=== PATIENT | male | born 1985 | race Caucasian/White ===

== ENCOUNTER 2019-08-06 05:39 | Emergency (ER) | payer MEDICAID ==
[~2019-08-06] VITALS: Ht 182.9 cm; Wt 110.0 kg
--- NOTE | 2019-08-06 05:53 | NUR ---
BIBA FOR RIGHT UPPER ABD PAIN. 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 PT REPORTS HX OF GERD, MS, ANX/DEP.
[2019-08-06] MEDS ORDERED: ONDANSETRON 2MG/ML, 2ML IVPush ONE (06:00)
[2019-08-06] MEDS ORDERED: SODIUM CHLORIDE FLUSH 10ML SYR IVF ONE (06:00)
[2019-08-06] MEDS ORDERED: ONDANSETRON 2MG/ML, 2ML ONE (06:13)
[2019-08-06] MEDS ORDERED: MORPHINE SULFATE 4 MG/ML, 1ML ONE ×2 (06:13→06:41)
[2019-08-06] MEDS: MORPHINE SULFATE 4 MG/ML, 1ML IVPush PRN ×2 (06:18→06:43)
--- NOTE | 2019-08-06 06:21 | NUR ---
FREIGHT ENGINEER AT BEDSIDE.
[2019-08-06 06:26] LABS: MEAN CORPUSCULAR HGB CONC 33.4 g/dL (33.2-36.2); MEAN CORPUSCULAR VOLUME 86.7 fL (81-97); MEAN PLATELET VOLUME 8.9 fL (7.4-10.4); PLATELET COUNT 282 x10^3/uL (130-400); RED BLOOD COUNT 5.48 x10^6/uL (4.38-5.82); RED CELL DISTRIBUTION WIDTH 13.6 % (9.4-14.8)
[2019-08-06 06:32] LABS: ALANINE AMINOTRANSFERASE 37 U/L (12-78); ALBUMIN 4.2 g/dL (3.4-5.0); ANION GAP 8 mmol/L (5-15); CALCIUM 9.4 mg/dL (8.5-10.1); CHLORIDE 107 mmol/L (98-107); CREATININE 1.12 mg/dL (0.7-1.3)
[2019-08-06 06:35] LABS: ALKALINE PHOSPHATASE 76 U/L (45-117); BILIRUBIN,TOTAL 0.9 mg/dL (0.2-1.0)
[2019-08-06 06:42] LABS: MD YES
[2019-08-06 06:43] LABS: <PLATELET ESTIMATE> ADEQUATE; <PLT MORPHOLOGY> NORMAL PLT MORPH; EOS#(MANUAL) 0.16 x10^3/uL (0.0-0.4); EOS% (MANUAL) 1 % (1-7); LYMPH#(MANUAL) 2.33 x10^3/uL (1-3.4); LYMPHS% (MANUAL) 15 % (22-44); MONOS#(MANUAL) 0.62 x10^3/uL (0.3-2.7); MONOS% (MANUAL) 4 % (2-9); SEGS% (MANUAL) 80 % (42-75)
[2019-08-06 06:45] LABS: <RBC MORPHOLOGY> NORMAL
--- NOTE | 2019-08-06 06:53 | NUR ---
REPORT GIVEN TO KAMALJIT MORSE.
[2019-08-06 07:03] VITALS: BP 121/64
--- NOTE | 2019-08-06 07:04 | NUR ---
PT RESTING ON GURNEY AT THIS TIME, STATES PAIN RELIEF FROM PRN DOPSTER PER NOC RN. VSS, EDUCATED ON NEED FOR UA, PT HAD GONE RECENTLY AND FORGOT TO PROVIDE SAMPLE. NO OTHER NEEDS AT THIS TIME
[2019-08-06 07:17] LABS: MICROSCOPIC INDICATED
[2019-08-06 07:26] LABS: CULTURE INDICATED? NO
== END 2019-08-06 07:50 | disposition home or self-care (01) ==
LOC: ED 07:44
DX: R11.2 Nausea with vomiting, unspecified (principal); R10.11 Right upper quadrant pain; F41.9 Anxiety disorder, unspecified; R94.31 Abnormal electrocardiogram [ECG] [EKG]
CPT/HCPCS: 36415; 76700; 80053; 81001; 83690; 85025; 93005; 96374; 96375; 99285; J2270; J2405

== ENCOUNTER 2019-08-23 02:32 | Emergency (ER) | payer MEDICAID ==
[~2019-08-23] VITALS: Ht 182.9 cm; Wt 109.0 kg
--- NOTE | 2019-08-23 02:50 | NUR ---
pt here for abd cramping with nausea for several hours. Vss. urine sent to lab. at bedside
[2019-08-23] MEDS ORDERED: PROMETHAZINE 25 MG/ML, 1ML ONE (02:56)
[2019-08-23] MEDS ORDERED: ONDANSETRON ODT 8 MG ONE (02:57)
[2019-08-23] MEDS ORDERED: ONDANSETRON ODT 4 MG PO ONE (03:00)
[2019-08-23] MEDS ORDERED: PROMETHAZINE 25 MG/ML, 1ML IM ONE (03:00)
[2019-08-23 03:17] LABS: MICROSCOPIC NOT IND
[2019-08-23 03:43] LABS: ALBUMIN 3.8 g/dL (3.4-5.0); ANION GAP 6 mmol/L (5-15); CHLORIDE 108 mmol/L (98-107)
[2019-08-23 03:46] LABS: ALANINE AMINOTRANSFERASE 40 U/L (12-78); ALKALINE PHOSPHATASE 69 U/L (45-117); BILIRUBIN,TOTAL 0.5 mg/dL (0.2-1.0); CREATININE 1.11 mg/dL (0.7-1.3); TOTAL PROTEIN 7.2 g/dL (6.4-8.2)
[2019-08-23 03:47] LABS: BASOPHILS # (AUTO) 0.21 x10^3/uL (0-0.1); BASOPHILS % (AUTO) 1 % (0-1); EOSINOPHILS # (AUTO) 0.55 x10^3/uL (0-0.4); EOSINOPHILS % (AUTO) 3 % (1-7); LYMPHOCYTES # (AUTO) 1.93 x10^3/uL (1-3.4); LYMPHOCYTES % (AUTO) 12 % (22-44); MD NO; MEAN CORPUSCULAR HEMOGLOBIN 28.9 pg (27.5-34.5); MEAN CORPUSCULAR HGB CONC 33.4 g/dL (33.2-36.2); MEAN PLATELET VOLUME 9.7 fL (7.4-10.4); MONOCYTES # (AUTO) 0.46 x10^3/uL (0.2-0.8); MONOCYTES % (AUTO) 3 % (2-9); NEUTROPHILS # (AUTO) 13.09 x10^3/uL (1.8-6.8); NEUTROPHILS % (AUTO) 81 % (42-75); PLATELET COUNT 238 x10^3/uL (130-400); RED BLOOD COUNT 5.33 x10^6/uL (4.38-5.82); RED CELL DISTRIBUTION WIDTH 13.5 % (9.4-14.8)
[2019-08-23 04:20] VITALS: BP 118/75
== END 2019-08-23 04:53 | disposition home or self-care (01) ==
LOC: ED 02:59
DX: K76.0 Fatty (change of) liver, not elsewhere classified (principal); R11.2 Nausea with vomiting, unspecified; R10.10 Upper abdominal pain, unspecified
CPT/HCPCS: 36415; 76700; 80053; 81003; 83690; 85025; 96372; 99284; J2550; Q0162

== ENCOUNTER 2019-10-08 22:02 | Emergency (ER) | payer MEDICAID ==
[~2019-10-08] VITALS: Ht 182.9 cm; Wt 110.4 kg
[2019-10-08] MEDS ORDERED: MAALOX/HYOSCYAMINE/LIDOCAINE 45 ML BTL ONE (22:27)
[2019-10-08] MEDS ORDERED: ONDANSETRON ODT 4 MG ONE (22:27)
[2019-10-08] MEDS ORDERED: MAALOX/HYOSCYAMINE/LIDOCAINE 45 ML BTL PO ONE (22:30)
[2019-10-08] MEDS ORDERED: ONDANSETRON ODT 4 MG PO ONE (22:30)
--- NOTE | 2019-10-08 22:30 | NUR ---
Patient presents to ER c/o upper quad abd cramping x2 hours with N/V. Denies diarrhea or urinary symptoms. Patient states he was seen here less than a month ago for the same and did not have a dx. He was referred to a medical illustrator but has not followed up; these symptoms feel the same as before. Patient is in NAD. Respirations even and unlabored.
[2019-10-08 22:55] LABS: BASOPHILS # (AUTO) 0.09 x10^3/uL (0-0.1); BASOPHILS % (AUTO) 1 % (0-1); EOSINOPHILS # (AUTO) 0.64 x10^3/uL (0-0.4); EOSINOPHILS % (AUTO) 5 % (1-7); LYMPHOCYTES # (AUTO) 3.64 x10^3/uL (1-3.4); LYMPHOCYTES % (AUTO) 29 % (22-44); MD NO; MEAN CORPUSCULAR HEMOGLOBIN 28.1 pg (27.5-34.5); MEAN CORPUSCULAR HGB CONC 32.4 g/dL (33.2-36.2); MEAN CORPUSCULAR VOLUME 86.6 fL (81-97); MEAN PLATELET VOLUME 8.4 fL (7.4-10.4); MONOCYTES # (AUTO) 0.78 x10^3/uL (0.2-0.8); MONOCYTES % (AUTO) 6 % (2-9); NEUTROPHILS # (AUTO) 7.46 x10^3/uL (1.8-6.8); NEUTROPHILS % (AUTO) 59 % (42-75); PLATELET COUNT 297 x10^3/uL (130-400); RED BLOOD COUNT 5.46 x10^6/uL (4.38-5.82); RED CELL DISTRIBUTION WIDTH 12.9 % (9.4-14.8)
[2019-10-08] MEDS ORDERED: SODIUM CHLORIDE 0.9% 1,000ML IVBOLUS ONE (23:00)
[2019-10-08 23:05] LABS: ALANINE AMINOTRANSFERASE 33 U/L (12-78); ALBUMIN 3.9 g/dL (3.4-5.0); ANION GAP 6 mmol/L (5-15); CALCIUM 9.8 mg/dL (8.5-10.1); CHLORIDE 109 mmol/L (98-107); CREATININE 1.09 mg/dL (0.7-1.3)
[2019-10-08 23:07] LABS: ALKALINE PHOSPHATASE 71 U/L (45-117); BILIRUBIN,TOTAL 0.7 mg/dL (0.2-1.0); TOTAL PROTEIN 7.7 g/dL (6.4-8.2)
[2019-10-09 00:03] VITALS: BP 120/77
== END 2019-10-09 00:07 | disposition home or self-care (01) ==
LOC: ED 22:32
DX: R11.2 Nausea with vomiting, unspecified (principal); R10.13 Epigastric pain; R10.10 Upper abdominal pain, unspecified
CPT/HCPCS: 36415; 80053; 83690; 85025; 99283; Q0162

== ENCOUNTER 2019-11-29 12:05 | Emergency (ER) | payer MEDICAID ==
[~2019-11-29] VITALS: Ht 182.9 cm; Wt 112.6 kg
--- NOTE | 2019-11-29 12:16 | NUR ---
PATIENT COMES IN WITH CHIEF C/O ABD CRAMPING AND PAIN. CRAMPING AND PAIN STARTED THIS MORNING AFTER PATIENT WOKE UP AROUND 0930. PATIENT REPORTS 1 EPISODE OF EMESIS PRIOR TO ARRIVAL AT HOSPITAL. PATIENT'S REPORTS HIS PAIN LEVEL IS 9/10. PATIENT ACTIVELY VOMITING DURING ASSESSMENT.
[2019-11-29] MEDS ORDERED: LORazepam 2 MG/ML, 1ML IVPush ONE (12:30)
[2019-11-29] MEDS ORDERED: ONDANSETRON 2MG/ML, 2ML IVPush ONE (12:30)
[2019-11-29] MEDS ORDERED: SODIUM CHLORIDE 0.9% 1,000ML IVBOLUS ONE (12:30)
[2019-11-29] MEDS ORDERED: MAALOX/HYOSCYAMINE/LIDOCAINE 45 ML BTL PO ONE (12:30)
[2019-11-29] MEDS ORDERED: FAMOTIDINE 20 MG/2 ML IV ONE (12:30)
[2019-11-29] MEDS ORDERED: ONDANSETRON 2MG/ML, 2ML ONE (12:44)
[2019-11-29] MEDS ORDERED: MAALOX/HYOSCYAMINE/LIDOCAINE 45 ML BTL ONE (12:44)
[2019-11-29] MEDS ORDERED: LORazepam 2 MG/ML, 1ML ONE (12:44)
[2019-11-29] MEDS ORDERED: FAMOTIDINE 20 MG/2 ML ONE (12:45)
[2019-11-29 12:58] VITALS: BP 115/87
[2019-11-29 13:00] LABS: BASOPHILS # (AUTO) 0.06 x10^3/uL (0-0.1); BASOPHILS % (AUTO) 0 % (0-1); EOSINOPHILS # (AUTO) 0.78 x10^3/uL (0-0.4); EOSINOPHILS % (AUTO) 6 % (1-7); LYMPHOCYTES # (AUTO) 2.79 x10^3/uL (1-3.4); LYMPHOCYTES % (AUTO) 20 % (22-44); MD NO; MEAN CORPUSCULAR HEMOGLOBIN 28.4 pg (27.5-34.5); MEAN CORPUSCULAR VOLUME 86.1 fL (81-97); MEAN PLATELET VOLUME 8.5 fL (7.4-10.4); MONOCYTES % (AUTO) 6 % (2-9); NEUTROPHILS # (AUTO) 9.71 x10^3/uL (1.8-6.8); NEUTROPHILS % (AUTO) 68 % (42-75); PLATELET COUNT 302 x10^3/uL (130-400); RED CELL DISTRIBUTION WIDTH 13.4 % (9.4-14.8)
--- NOTE | 2019-11-29 13:06 | NUR ---
X-RAY, US DELAY
[2019-11-29 13:09] LABS: ALANINE AMINOTRANSFERASE 32 U/L (12-78); ALBUMIN 3.9 g/dL (3.4-5.0); ANION GAP 4 mmol/L (5-15); CALCIUM 9.4 mg/dL (8.5-10.1); CHLORIDE 109 mmol/L (98-107); CREATININE 1.08 mg/dL (0.7-1.3)
[2019-11-29 13:12] LABS: ALKALINE PHOSPHATASE 84 U/L (45-117); BILIRUBIN,TOTAL 0.4 mg/dL (0.2-1.0); TOTAL PROTEIN 7.6 g/dL (6.4-8.2)
--- NOTE | 2019-11-29 14:02 | NUR ---
PATIENT BACK FROM US, CALL LIGHT WITHIN REACH, NO FURTHER NEEDS AT THIS TIME.
== END 2019-11-29 14:21 | disposition home or self-care (01) ==
LOC: ED 14:15
DX: K85.90 Acute pancreatitis without necrosis or infection, unspecified (principal); R10.13 Epigastric pain; R94.31 Abnormal electrocardiogram [ECG] [EKG]; R11.2 Nausea with vomiting, unspecified; G35 Multiple sclerosis
CPT/HCPCS: 36415; 74018; 76700; 80053; 83690; 85025; 93005; 96361; 96374; 96375; 99285; J2060; J2405; J3490; J7030

== ENCOUNTER 2020-01-12 06:18 | Emergency (ER) | payer MEDICAID ==
[~2020-01-12] VITALS: Ht 182.9 cm; Wt 113.4 kg
--- NOTE | 2020-01-12 06:29 | NUR ---
THIS IS A 34Y M BIB EMS FROM HOME FOR N/V X1.5HRS PT HAS BEEN SEEN FOR THIS PRIOR AND FOLLOWED UP WITH GI STILL AWAITING DX FOR THIS. PT WAS GIVEN 25O NS, 4ZOFRAN FORENSIC CHEMIST. PT HAS DX OF ANXIETY AND MS. PT CONNECTED TO MONITORING VSS, PT EDUCATED TO SLOW BREATHING. PT STS HE CANNOT TOLERATE THIS ANYMORE HE CAN'T CHANGE INTO GOWN. PT STS HE THREW UP HIS ANXIETY MEDICATION A LITTLE WHILE AGO.
[2020-01-12] MEDS ORDERED: HYDROmorphone 1 MG/ML, 1ML INJ ONE (06:49)
[2020-01-12] MEDS ORDERED: ONDANSETRON 2MG/ML, 2ML ONE (06:50)
[2020-01-12] MEDS ORDERED: LORazepam 2 MG/ML, 1ML ONE (06:50)
[2020-01-12 06:56] LABS: BASOPHILS % (AUTO) 1 % (0-1); EOSINOPHILS % (AUTO) 4 % (1-7); LYMPHOCYTES % (AUTO) 21 % (22-44); MEAN CORPUSCULAR HEMOGLOBIN 28.8 pg (27.5-34.5); MEAN CORPUSCULAR HGB CONC 33.5 g/dL (33.2-36.2); MEAN PLATELET VOLUME 8.5 fL (7.4-10.4); MONOCYTES % (AUTO) 8 % (2-9); NEUTROPHILS % (AUTO) 67 % (42-75); PLATELET COUNT 297 x10^3/uL (130-400); RED BLOOD COUNT 5.42 x10^6/uL (4.38-5.82); RED CELL DISTRIBUTION WIDTH 13.5 % (9.4-14.8)
[2020-01-12] MEDS ORDERED: SODIUM CHLORIDE FLUSH 10ML SYR IVF ONE (07:00)
[2020-01-12] MEDS ORDERED: SODIUM CHLORIDE 0.9% 1,000 ML IV ONE (07:00)
[2020-01-12] MEDS ORDERED: ONDANSETRON 2MG/ML, 2ML IVPush ONE (07:00)
[2020-01-12] MEDS ORDERED: LORazepam 2 MG/ML, 1ML IVPush ONE (07:00)
[2020-01-12] MEDS ORDERED: SODIUM CHLORIDE 0.9% 1,000ML IVBOLUS ONE (07:00)
[2020-01-12] MEDS ORDERED: HYDROmorphone 2 MG/ML, 1ML IVPush PRN (07:00)
--- NOTE | 2020-01-12 07:01 | NUR ---
REC BS REPORT PT APPEARS TO BE IN DISCOMFORT PT IS TALKING IN FULL SENTENCES NO DISCOMFORT NOTED
[2020-01-12 07:07] LABS: ALANINE AMINOTRANSFERASE 32 U/L (12-78); ANION GAP 7 mmol/L (5-15); CALCIUM 9.2 mg/dL (8.5-10.1); CHLORIDE 110 mmol/L (98-107); CREATININE 1.16 mg/dL (0.7-1.3)
[2020-01-12 07:09] VITALS: BP 121/81
[2020-01-12 07:10] LABS: ALKALINE PHOSPHATASE 81 U/L (45-117); BILIRUBIN,TOTAL 0.6 mg/dL (0.2-1.0); TOTAL PROTEIN 7.6 g/dL (6.4-8.2)
[2020-01-12 07:33] LABS: MD SCAN
[2020-01-12] MEDS ORDERED: OMNIPAQUE 350 MG/ML, 100ML BOTTLE ONE (07:58)
[2020-01-12 08:16] LABS: MICROSCOPIC INDICATED
== END 2020-01-12 09:47 | disposition home or self-care (01) ==
LOC: ED 08:54
DX: R10.84 Generalized abdominal pain (principal); R11.2 Nausea with vomiting, unspecified; R05 Cough
CPT/HCPCS: 36415; 74022; 74177; 80053; 81001; 83690; 85025; 93005; 96361; 96374; 96375; 99285; J1170; J2060; J2405; J7030; Q9967

== ENCOUNTER 2020-06-04 13:23 | Emergency (ER) | payer MEDICAID ==
[~2020-06-04] VITALS: Ht 177.8 cm; Wt 102.3 kg
--- NOTE | 2020-06-04 13:30 | NUR ---
BIB EMS FOR C/O NAUSEA AND DIAPHORETIC W/ BOUTS OF EMESIS. STARTED TODAY AT 1000. PT C/O ESOPHAGEAL PAIN. GIVEN 4 MG ZOFRAN, 100 MCG FENTANYL, 250 ML NS. HX MS PER PT "MAKES EVERYTHING SO MUCH WORSE AND PAINFUL". MONITORS APPLIED. EKG COMPLETED. WARM BLANKET PROVIDED. JOSE.
--- NOTE | 2020-06-04 13:51 | NUR ---
JOCY SMITH AT BEDSIDE FOR EVAL.
[2020-06-04 14:12] LABS: MICROSCOPIC NOT IND
[2020-06-04 14:12] LABS: BASOPHILS % (AUTO) 0 % (0-1); EOSINOPHILS % (AUTO) 2 % (1-7); LYMPHOCYTES % (AUTO) 13 % (22-44); MEAN CORPUSCULAR HEMOGLOBIN 28.9 pg (27.5-34.5); MEAN CORPUSCULAR HGB CONC 33.9 g/dL (33.2-36.2); MEAN PLATELET VOLUME 8.5 fL (7.4-10.4); MONOCYTES % (AUTO) 6 % (2-9); NEUTROPHILS % (AUTO) 79 % (42-75); PLATELET COUNT 266 x10^3/uL (130-400); RED CELL DISTRIBUTION WIDTH 13.7 % (9.4-14.8)
[2020-06-04 14:25] LABS: ALANINE AMINOTRANSFERASE 39 U/L (12-78); ALBUMIN 3.9 g/dL (3.4-5.0); ANION GAP 4 mmol/L (5-15); CALCIUM 8.6 mg/dL (8.5-10.1); CHLORIDE 111 mmol/L (98-107); CREATININE 1.05 mg/dL (0.7-1.3)
[2020-06-04 14:27] LABS: ALKALINE PHOSPHATASE 88 U/L (45-117); BILIRUBIN,TOTAL 0.4 mg/dL (0.2-1.0); TOTAL PROTEIN 7.6 g/dL (6.4-8.2)
[2020-06-04 14:30] LABS: MD SCAN
[2020-06-04 14:40] VITALS: BP 130/89
== END 2020-06-04 15:23 | disposition home or self-care (01) ==
LOC: ED 15:11
DX: R11.2 Nausea with vomiting, unspecified (principal); R19.7 Diarrhea, unspecified; R94.31 Abnormal electrocardiogram [ECG] [EKG]
CPT/HCPCS: 36415; 80053; 81003; 85025; 93005; 99284

== ENCOUNTER 2020-06-15 05:04 | Emergency (ER) | payer MEDICAID ==
[~2020-06-15] VITALS: Ht 182.9 cm; Wt 115.0 kg
--- NOTE | 2020-06-15 05:16 | NUR ---
DR. WALTER IN TO EVAL PT. AND DISCUSS POC. PT. AMBULATORY TO BR WITH STEADY GAIT FOR UA.
[2020-06-15] MEDS ORDERED: HYDROmorphone 1 MG/ML, 1ML INJ ONE (05:18)
[2020-06-15] MEDS ORDERED: ONDANSETRON 2MG/ML, 2ML ONE (05:18)
[2020-06-15] MEDS ORDERED: LACTATED RINGERS 1,000 ML IV ONE (05:30)
[2020-06-15] MEDS ORDERED: SODIUM CHLORIDE FLUSH 10ML SYR IVF ONE (05:30)
[2020-06-15] MEDS ORDERED: ONDANSETRON 2MG/ML, 2ML IVPush ONE (05:30)
[2020-06-15] MEDS ORDERED: HYDROmorphone 1 MG/ML, 1ML INJ IV ONE (05:30)
[2020-06-15 05:35] VITALS: BP 132/96
--- NOTE | 2020-06-15 05:36 | NUR ---
IMMEDIATELY AFTER KILN PULLER PT. C/O SEVERE UPPER ABD PAIN AND BECAME VERY DIAPHORETIC. EKG DONE. DR. WALTER UPDATED ON THIS.
[2020-06-15] MEDS ORDERED: MAALOX/HYOSCYAMINE/LIDOCAINE 45 ML BTL ONE (06:04)
--- NOTE | 2020-06-15 06:10 | NUR ---
PT. REPORTS PAIN DOWN TO 3/10 "THAT IS WHERE I PRETTY MUCH LIVE". REPORTS PAIN IS TOLERABLE.
--- NOTE | 2020-06-15 06:24 | NUR ---
PT. ABLE TO MAINTAIN O2 SAT >94% OFF OF O2 FOR >10 MIN PRIOR TO D/C.
[2020-06-15] MEDS ORDERED: MAALOX/HYOSCYAMINE/LIDOCAINE 45 ML BTL PO ONE (06:30)
== END 2020-06-15 06:27 | disposition home or self-care (01) ==
LOC: ED 06:10
DX: R10.13 Epigastric pain (principal); R11.2 Nausea with vomiting, unspecified; R53.1 Weakness; I48.91 Unspecified atrial fibrillation; R94.31 Abnormal electrocardiogram [ECG] [EKG]
CPT/HCPCS: 93005; 96361; 96374; 96375; 99284; J1170; J2405; J7120